=== PATIENT | female | born 1955 | race Caucasian/White ===

== ENCOUNTER → 2016-12-05 | Outpatient (CLI) | payer OTHER | LOC: MW.CHOBGYN 15:45 | PROVIDERS: ATTEND Nurse Practitioner Women's Health | DX: N89.8 Other specified noninflammatory disorders of vagina (principal) | CPT/HCPCS: 87480; 87510; 87660 ==

== ENCOUNTER → 2017-01-02 | Outpatient (CLI) | payer OTHER | LOC: MW.CHUR 08:09 | PROVIDERS: ATTEND Urology | DX: N39.0 Urinary tract infection, site not specified (principal); Z87.442 Personal history of urinary calculi | CPT/HCPCS: 87086 ==

== ENCOUNTER → 2017-01-09 | Outpatient (CLI) | payer OTHER | LOC: MW.CHOBGYN 09:16 | PROVIDERS: ATTEND Nurse Practitioner Women's Health | DX: N76.0 Acute vaginitis (principal) | CPT/HCPCS: 87480; 87510; 87660 ==

== ENCOUNTER → 2017-01-23 | Outpatient (CLI) | payer OTHER | LOC: MW.CHOBGYN 14:01 | PROVIDERS: ATTEND Nurse Practitioner Women's Health | DX: N76.0 Acute vaginitis (principal) | CPT/HCPCS: 87480; 87510; 87660 ==

== ENCOUNTER 2021-09-03 16:07 | Emergency (ER) | payer OTHER ==
--- NOTE | 2021-09-03 16:50 | EDM.PDOC ---
ED HPI GENERAL MEDICAL PROBLEM - General Chief Complaint: Genitourinary Problem Stated Complaint: DR ALEGRE REFERRAL, BLOOD IN URINE Time Seen by Provider: 09/03/21 16:09 Source of Information: Reports: Patient History Limitations: Reports: No Limitations - History of Present Illness INITIAL COMMENTS - FREE TEXT/NARRATIVE: HISTORY AND PHYSICAL: History of present illness: Patient is a 66-year-old female who presents to the emergency room from the clinic with complaints of right flank pain. She states she has had this discomfort for a few days and actually feels better since arriving to the emergency room. She has noted blood in her urine with mild dysuria. Patient denies any fever, chills, headache, change in vision, syncope or near syncope. Denies any chest pain, back pain, shortness of breath or cough. Denies any abdominal pain, nausea, vomiting, diarrhea, constipation, or blood in stool. Patient has been eating and drinking appropriately. No recent travel or sick c ontacts. Review of systems: As per history of present illness and below otherwise all systems reviewed and negative. Past medical history: As per history of present illness and as reviewed below otherwise noncontributory. Surgical history: As per history of present illness and as reviewed below otherwise noncontributory. Social history: See social history for further information Family history: As per history of present illness and as reviewed below otherwise noncontributory. Physical exam: General: Well developed and well nourished 66 year old female. Alert and orientated x 3. Nontoxic in appearance and in no acute distress. Vital signs are stable and have been reviewed by me. Nursing notes were reviewed. HEENT: Atraumatic, normocephalic, pupils equal and reactive bilaterally, negative for conjunctival pallor or scleral icterus, mucous membranes moist, trachea midline. No drooling or trismus noted. No meningeal signs. No hot potato voice noted. Lungs: Clear to auscultation bilaterally. No wheezes, rales, or rhonchi. Chest nontender. Normal work of breathing, no accessory muscles used. Heart: S1S2, regular rate and rhythm without overt murmur, gallops, or rubs. No JVD. No peripheral edema Abdomen: Soft, nondistended, nontender. Normoactive bowel sounds. Negative for masses. Mild right sided costovertebral tenderness. Skin: Intact, warm, dry. No lesions or rashes noted. Hematologic: No petechiae or purpra. Mucosa appropriate color and normal nail bed color and refill. Extremities: Atraumatic, moves all extremities per self without difficulty or deficits, negative for cords or calf pain. Neurovascular unremarkable. Neuro: Awake, alert, oriented. Cranial nerves II through XII unremarkable. Cerebellum unremarkable. Motor and sensory unremarkable throughout. Exam nonfocal. Psychiatric: Mood and affect are appropriate. Normal thought process. Answering questions appropriately. Please note that the patient was seen and evaluated during the 2019 SARS-CoV-2 novel coronavirus pandemic period. Community viral transmission is ongoing at time of this encounter and the emergency department is operating under pandemic response procedures. Medical Decision Making: Blood work is unremarkable. The urine shows evidence of UTI, culture has been added. CT shows a right-sided obstructive uropathy due to a 5 millimeter calculus at the junction of the mid and distal thirds of the right ureter. No intrarenal calculi on the right. There is a 3 millimeter intrarenal calculus on the left that is not currently obstructive. I did consult with Dr Gee at [facility]. Since patient's vitals are stable, afebrile and does not have leukocytosis she is able to follow-up with them in the next few days. I have talked with the patient about today's findings, in addition to providing specific details for plan of care. Reassessment at the time of disposition demonstrates that the patient is in no acute distress. The patient is stable for discharge, counseling was provided and we discussed in great detail signs and symptoms that would prompt them to return to the Emergency Department (fever, increased pain, n/v). Medication, follow up and supportive care measures were reviewed and discussed. Voices understanding and is agreeable to plan of care. Denies any further questions or concerns at this time. Diagnostics: CBC, CMP, UA, CT abd/pelvis Therapeutics: None Prescription: Flomax, Eastern, Cipro Impression: UTI Kidney stone, right Plan: 1. You were evaluated today on an emergent basis. Your CT shows an obstructive 5mm stone on the right ureter. You also have a UTI which will require antibiotics. Antibiotics and Flomax have been prescribed. I did call and talk with Dr Gee the urologist at [facility] about your case. He would like you to follow up with them 2. You can alternate Tylenol and ibuprofen as needed for pain and fever management. Eastern for moderate to sever pain. This medication may cause drowsiness, so do not take while driving or needing to be functioning outside the house. 3. We encourage you to follow up with Urology for re-evaluation and further care/management. 4. If your symptoms should worsen, new symptoms develop or any of the signs and symptoms we discussed should arise please return to the emergency room or call 911 (if needed). Definitive disposition and diagnosis as appropriate pending reevaluation and review of above. - Related Data Allergies Allergy/AdvReac Type Severity Reaction Status Date / Time nitrofurantoin Allergy Nausea Verified 09/03/21 16:16 [From Macrobid] shellfish derived Allergy Itching Verified 09/03/21 16:11 Sulfa (Sulfonamide Allergy Hives Verified 09/03/21 16:11 Antibiotics) Home Meds: Home Meds Acetaminophen [Tylenol Extra Strength] 2 tab PO ASDIRECTED PRN 09/06/15 [History] Alum Hydroxide/Mag Carbonate [Gaviscon] 15 ml PO BEDTIME 09/06/15 [History] Cranberry Fruit Extract [Cranberry] 200 mg PO DAILY 09/06/15 [History] Omeprazole [Prilosec] 20 mg PO DAILY 09/06/15 [History] Calcium Carbonate [Tums] 1 - 2 tab CHEW ASDIRECTED PRN 12/26/15 [History] Ciprofloxacin HCl [Cipro] 500 mg PO BID 5 Days #10 tablet 09/03/21 [Rx] Insulin Aspart [NovoLOG] 11 units SQ DAILY 09/03/21 [History] Insulin Degludec [Tresiba] 100 unit SQ 09/03/21 [History] Tamsulosin [Tamsulosin 24 Hr] 0.4 mg PO DAILY #7 cap.er 09/03/21 [Rx] traMADol [Ultram] 50 mg PO Q4H PRN #15 tab 09/03/21 [Rx] Past Medical History - Past Health History Medical/Surgical History: Denies Medical/Surgical History HEENT History: Reports: Impaired Vision Other HEENT History: wears glasses Cardiovascular History: Reports: High Cholesterol Respiratory History: Reports: None Other Respiratory History: she thinks she might have sleep apnea, not diagnosed Gastrointestinal History: Reports: GERD, Hiatal Hernia Genitourinary History: Reports: Renal Calculus, UTI, Recurrent Other Genitourinary History: presently has small mass to rt kidney, hx UTI ADMITTING REPRESENTATIVE History: Reports: None Musculoskeletal History: Reports: None Neurological History: Reports: None Other Neuro History: has migrane aura, 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, has motion sickness Psychiatric History: Reports: Anxiety, Depression Endocrine/Metabolic History: Reports: Diabetes, Type II Hematologic History: Reports: None Immunologic History: Reports: None Oncologic (Cancer) History: Reports: None Dermatologic History: Reports: None - Infectious Disease History Infectious Disease History: Reports: Chicken Pox, Measles - Past Surgical History Head Surgeries/Procedures: Reports: None Cardiovascular Surgical History: Reports: None Respiratory Surgical History: Reports: None GI Surgical History: Reports: Cholecystectomy Other GI Surgeries/Procedures: Multiple laproscopies Female Surgical History: Reports: Other (See Below) Other Female Surgeries/Procedures: hx hysteroscopy Endocrine Surgical History: Reports: None Neurological Surgical History: Reports: None Musculoskeletal Surgical History: Reports: None Oncologic Surgical History: Reports: None Dermatological Surgical History: Reports: None Social & Family History - Family History Family Medical History: No Pertinent Family History - Tobacco Use Tobacco Use Status *Q: Former Tobacco User Used Tobacco, but Quit: Yes Month/Year Tobacco Last Used: 09/1980 - Caffeine Use Caffeine Use: Reports: None - Recreational Drug Use Recreational Drug Use: No ED ROS GENERAL - Review of Systems Review Of Systems: Comprehensive ROS is negative, except as noted in HPI. ED EXAM, RENAL/ - Physical Exam Exam: See Below Course - Vital Signs Last Recorded V/S: Last Vital Signs Temp 97.2 F 09/03/21 16:16 Pulse 76 09/03/21 16:16 Resp 16 09/03/21 16:16 BP 137/77 09/03/21 16:16 Pulse Ox 96 09/03/21 16:16 - Orders/Labs/Meds Labs: Laboratory Tests 09/03/21 09/03/21 Range/Units 17:02 17:02 WBC 10.56 (4.0-11.0) K/uL RBC 5.07 (4.30-5.90) M/uL Hgb 14.5 (12.0-16.0) g/dL Hct 42.8 (36.0-46.0) % MCV 84.4 (80.0-98.0) fL MCH 28.6 (27.0-32.0) pg MCHC 33.9 (31.0-37.0) g/dL RDW Std Deviation 40.9 (28.0-62.0) fl RDW Coeff of Bunny 14 (11.0-15.0) % Plt Count 235 (150-400) K/uL MPV 10.50 (7.40-12.00) fL Neut % (Auto) 72.0 (48.0-80.0) % Lymph % (Auto) 19.8 (16.0-40.0) % Starke % (Auto) 6.9 (0.0-15.0) % Eos % (Auto) 1.0 (0.0-7.0) % Baso % (Auto) 0.3 (0.0-1.5) % Neut # (Auto) 7.6 H (1.4-5.7) K/uL Lymph # (Auto) 2.1 (0.6-2.4) K/uL Starke # (Auto) 0.7 (0.0-0.8) K/uL Eos # (Auto) 0.1 (0.0-0.7) K/uL Baso # (Auto) 0.0 (0.0-0.1) K/uL Nucleated RBC % 0.0 /100WBC Nucleated RBCs # 0 K/uL Sodium 140 (136-145) mmol/L Potassium 4.4 (3.5-5.1) mmol/L Chloride 104 (98-107) mmol/L Carbon Dioxide 28.7 (21.0-32.0) mmol/L BUN 14 (7.0-18.0) mg/dL Creatinine 0.7 (0.6-1.0) mg/dL Est Cr Clr Drug Dosing 79.70 mL/min Estimated GFR (MDRD) > 60.0 ml/min Glucose 91 (74-106) mg/dL Calcium 9.1 (8.5-10.1) mg/dL Total Bilirubin 0.4 (0.2-1.0) mg/dL AST 17 (15-37) IU/L ALT 19 (14-63) IU/L Alkaline Phosphatase 116 (46-116) U/L Total Protein 8.0 (6.4-8.2) g/dL Albumin 3.8 (3.4-5.0) g/dL Globulin 4.2 H (2.6-4.0) g/dL Albumin/Globulin Ratio 0.9 (0.9-1.6) Departure - Departure Time of Disposition: 18:00 Disposition: Home, Self-Care 01 Clinical Impression: Kidney stone on right side - Discharge Information Prescriptions: Ciprofloxacin HCl [Cipro] 500 mg PO BID 5 Days #10 tablet Tamsulosin [Tamsulosin 24 Hr] 0.4 mg PO DAILY #7 cap.er traMADol [Ultram] 50 mg PO Q4H PRN #15 tab PRN Reason: Pain Instructions: Kidney Stones, [id number] Forms: ED Department Discharge Additional Instructions: The following information is given to patients seen in the emergency department who are being discharged to home. This information is to outline your options for follow-up care. We provide all patients seen in our emergency department with a follow-up referral. The need for follow-up, as well as the timing and circumstances, are variable depending upon the specifics of your emergency department visit. If you don't have a primary care physician on staff, we will provide you with a referral. We always advise you to contact your personal physician following an emergency department visit to inform them of the circumstance of the visit and for follow-up with them and/or the need for any referrals to a consulting specialist. The emergency department will also refer you to a specialist when appropriate. This referral assures that you have the opportunity for follow-up care with a specialist. All of these measure are taken in an effort to provide you with optimal care, which includes your follow-up. Under all circumstances we always encourage you to contact your private physician who remains a resource for coordinating your care. When calling for follow-up care, please make the office aware that this follow-up is from your recent emergency room visit. If for any reason you are refused follow-up, please contact the [facility] Emergency Department at and asked to speak to the emergency department charge nurse. Dr. Gee and Dr [facility] [address] [place] [address] (Located on 5th Floor) [place] [id number] Thank you for choosing the [facility] emergency department in [place] for your medical needs today. It was a pleasure caring for you. Today you were seen in the emergency department for kidney stone 1. You were evaluated today on an emergent basis. Your CT shows an obstructive 5mm stone on the right ureter. You also have a UTI which will require antibiotics. Antibiotics and Flomax have been prescribed. I did call and talk with Dr Gee the urologist at [facility] in [place] about your case. He would like you to follow up with them, please call tomorrow as they would like to see you before [place] if able. 2. You can alternate Tylenol and ibuprofen as needed for pain and fever management. Eastern for moderate to sever pain. This medication may cause drowsiness, so do not take while driving or needing to be functioning outside the house. 3. We encourage you to follow up with Urology for re-evaluation and further care/management. 4. If your symptoms should worsen, new symptoms develop or any of the signs and symptoms we discussed should arise please return to the emergency room or call 911 (if needed). Sepsis Event Note (ED) - Evaluation Sepsis Screening Result: No Definite Risk - Focused Exam Vital Signs: Vital Signs Temp Pulse Resp BP Pulse Ox 09/03/21 16:16 97.2 F 76 16 137/77 96
--- NOTE | 2021-09-03 17:27 | CT ---
INDICATION: Right flank pain and hematuria. COMPARISON: January 11, 2018 TECHNIQUE: CT examination of the abdomen and pelvis was performed without intravenous contrast. Thin section axial images were obtained from the lung bases through the pubic symphysis. Oral contrast was not administered. Please note that all CT scans at this facility use dose modulation, iterative reconstruction, and/or weight-based dosing when appropriate to reduce radiation dose to as low as reasonably achievable. FINDINGS: LUNG BASES: Minimal atelectasis or scarring at the lung bases. Heart size normal at the lung bases. LIVER/BILIARY SYSTEM:The liver is normal in size and configuration given the lack of intravenous contrast. There is no visible focal mass and there is no intra- or extra hepatic biliary ductal dilatation.The gall bladder appears normal. ADRENALS: Normal non-contrast appearance KIDNEYS, URETERS and BLADDER:The kidneys are normal in size. There are no intrarenal calculi on the right. A 3 millimeter left lower pole renal calculus is noted. Right-sided obstructive uropathy identified due to a 5 millimeter calcified calculus at the junction of the mid and distal thirds of the right ureter. SPLEEN:Normal non-contrast appearance. PANCREAS: Normal non-contrast appearance. RETROPERITONEUM and MESENTERY: No mass or adenopathy. Mildly increased attenuation to mesenteric fat consistent with panniculitis. This was present previously and is generally not considered clinically significant GASTROINTESTINAL SYSTEM: There is no evidence of diverticulitis, colitis, mechanical obstruction, or appendicitis. The small bowel as visualized appears normal.Scattered diverticulosis PELVIS: No mass, adenopathy or free fluid. OSSEOUS STRUCTURES and ABDOMINAL WALL: There is an age-appropriate appearance of the osseous structures.Small fat containing umbilical hernia OTHER: No free fluid or free air. IMPRESSION: 1. Right-sided obstructive uropathy due to a 5 millimeter calculus at the junction of the mid and distal thirds of the right ureter. No intrarenal calculi on the right. There is a 3 millimeter intrarenal calculus on the left that is not currently obstructive. 2. Other incidental nonacute appearing findings as discussed above. Please note that all CT scans at this facility use dose modulation, iterative reconstruction, and/or weight-based dosing when appropriate to reduce radiation dose to as low as reasonably achievable. Dictated by Heriberto Johnson MD @ 09/03/2021 5:25:32 PM (Electronically Signed)
[2021-09-03 17:28] LABS: BLOOD UREA NITROGEN,BUN 14 mg/dL (7.0-18.0); CARBON DIOXIDE,CO2 28.7 mmol/L (21.0-32.0); CHLORIDE,CL 104 mmol/L (98-107); GLUCOSE RANDOM 91 mg/dL (74-106); POTASSIUM,K 4.4 mmol/L (3.5-5.1); SODIUM,NA 140 mmol/L (136-145)
[2021-09-03 18:26] VITALS: BP 128/84; PULSE 77
== END 2021-09-03 18:27 | disposition home or self-care (01) ==
LOC: MW.ED 16:07
DX: N20.2 Calculus of kidney with calculus of ureter (principal); K21.9 Gastro-esophageal reflux disease without esophagitis; Z88.2 Allergy status to sulfonamides; E11.9 Type 2 diabetes mellitus without complications; Z79.4 Long term (current) use of insulin; Z79.899 Other long term (current) drug therapy; Z88.1 Allergy status to other antibiotic agents; Z91.013 Allergy to seafood; Z87.891 Personal history of nicotine dependence
CPT/HCPCS: 36415; 74176; 74176-26; 80053; 85025; 99284-25